=== PATIENT | female | born 1990 | race Hispanic/Latino ===

== ENCOUNTER 2018-08-14 02:52 | Emergency (ER) | payer OTHER ==
[2018-08-14] MEDS ORDERED: SODIUM CHLORIDE 0.9% 1000ML 1,000 ML IV ONE (03:11)
[2018-08-14] MEDS ORDERED: ONDANSETRON HCL MDV 20ML 2 MG/ML VIAL ONE (03:11)
[2018-08-14] MEDS ORDERED: MORPHINE SULFATE 4 MG/1ML SYG ONE (03:12)
[2018-08-14 03:24] LABS: BASOPHILS % (AUTO) 0.3 % (0.0-5.0); EOSINOPHILS % (AUTO) 2.4 % (0.0-8.0); HEMATOCRIT 33.9 % (36-48); LYMPHOCYTES % (AUTO) 32.6 % (21.0-51.0); MEAN CORPUSCULAR HEMOGLOBIN 27.7 pg (27.0-33.0); MEAN CORPUSCULAR HGB CONC 32.2 g/dL (32.0-36.0); MONOCYTES % (AUTO) 7.9 % (3.0-13.0); NEUTROPHILS % (AUTO) 56.8 % (40.0-77.0); NUCLEATED RED BLOOD CELLS 0.1 % (0.0-0.19); PLATELET COUNT (AUTO) 203 K/uL (130-400); RED BLOOD CELL COUNT(AUTO) 3.94 MIL/uL (4.00-5.50); RED CELL DISTRIBUTION WIDTH 14.3 % (11.0-15.5); WHITE BLOOD COUNT (AUTO) 9.6 K/uL (4.8-10.8)
[2018-08-14 03:31] LABS: CREATININE 0.7 mg/dL (0.5-1.5); POTASSIUM 3.6 mmol/L (3.5-5.1)
[2018-08-14 03:36] LABS: ALBUMIN 3.6 g/dL (3.5-5.0); BILIRUBIN,TOTAL 0.2 mg/dL (0.2-1.0); TOTAL PROTEIN, SERUM 7.4 g/dL (6.0-8.3)
[2018-08-14 03:51] LABS: APPEARANCE,URINE Cloudy (CLEAR); BILIRUBIN,URINE Negative (NEGATIVE); COLOR,URINE Orange (YELLOW); GLUCOSE, URINE (UA) Negative (NEGATIVE); KETONES,URINE Negative (NEGATIVE); LEUKOCYTE ESTERASE ,URINE Moderate (NEGATIVE); NITRATE,URINE Negative (NEGATIVE); OCCULT BLOOD,URINE Large (NEGATIVE); PROTEIN,URINE POS 1+ (NEGATIVE)
[2018-08-14 03:52] LABS: HCG,QUAL RESULT NEGATIVE (NEGATIVE)
[2018-08-14 03:58] LABS: AMPHET/METH SCREEN,URINE NEGATIVE (NEGATIVE); BARBITURATE SCREEN, URINE NEGATIVE (NEGATIVE); BENZODIAZEPINES SCREEN,URINE NEGATIVE (NEGATIVE); CANNABINOID SCREEN,URINE POSITIVE (NEGATIVE); COCAINE SCREEN,URINE NEGATIVE (NEGATIVE); OPIATE SCREEN,URINE POSITIVE (NEGATIVE); PHENCYCLIDINE SCREEN,URINE NEGATIVE (NEGATIVE)
[2018-08-14 04:04] LABS: BACTERIA,URINE Moderate /HPF (None Seen); RBC,URINE TNTC /HPF (0-1)
== END 2018-08-14 04:57 | disposition home or self-care (01) ==
LOC: EDH 02:52
DX: N39.0 Urinary tract infection, site not specified (principal); N20.0 Calculus of kidney
CPT/HCPCS: 36415; 74176; 80053; 80305; 81001; 81025; 83690; 85025; 96374; 96375; 99284; J2270; J7030

== ENCOUNTER 2018-08-21 15:08 | Emergency (ER) | payer SELFPAY ==
[2018-08-21 15:46] LABS: APPEARANCE,URINE Clear (CLEAR); BILIRUBIN,URINE Negative (NEGATIVE); COLOR,URINE Yellow (YELLOW); GLUCOSE, URINE (UA) Negative (NEGATIVE); KETONES,URINE >=80 mg/dL (NEGATIVE); LEUKOCYTE ESTERASE ,URINE Small (NEGATIVE); NITRATE,URINE Negative (NEGATIVE); OCCULT BLOOD,URINE Large (NEGATIVE); PH,URINE 5.5 (5.0-8.0); PROTEIN,URINE POS 1+ (NEGATIVE)
[2018-08-21 15:49] LABS: HCG,QUAL RESULT NEGATIVE (NEGATIVE)
[2018-08-21] MEDS ORDERED: KETOROLAC TROMETHAMINE 30MG/ML ONE (15:53)
[2018-08-21 15:57] LABS: BACTERIA,URINE Moderate /HPF (None Seen); RBC,URINE 26-50 /HPF (0-1)
== END 2018-08-21 18:07 | disposition home or self-care (01) ==
LOC: EDH 15:08
DX: N20.1 Calculus of ureter (principal)
CPT/HCPCS: 74176; 81001; 81025; 96372; 99284; J1885

== ENCOUNTER 2021-07-09 13:26 | Inpatient (IN) | payer SELFPAY ==
[~2021-07-09] VITALS: Ht 152.4 cm; Wt 53.3 kg
[2021-07-09] MEDS ORDERED: 0.9%NACL 1000ML 1,000 ML IV ONE (14:00)
[2021-07-09] MEDS ORDERED: ONDANSETRON 4MG INJ IVP ONE (14:00)
[2021-07-09] MEDS ORDERED: MORPHINE 2 MG SYG IVP ONE ×2 (14:00→18:00)
[2021-07-09 14:12] LABS: BASOPHILS % (AUTO) 0.1 % (0.0-5.0); HEMATOCRIT 34.8 % (36-48); LYMPHOCYTES % (AUTO) 6.2 % (21.0-51.0); MEAN CORPUSCULAR HEMOGLOBIN 31.6 pg (27.0-33.0); MEAN CORPUSCULAR HGB CONC 32.8 g/dL (32.0-36.0); MEAN CORPUSCULAR VOLUME 96.4 fL (79-99); MONOCYTES % (AUTO) 6.2 % (3.0-13.0); NEUTROPHILS % (AUTO) 87.1 % (40.0-77.0); PLATELET COUNT (AUTO) 228 K/uL (130-400); RED BLOOD CELL COUNT(AUTO) 3.61 MIL/uL (4.00-5.50); RED CELL DISTRIBUTION WIDTH 11.9 % (11.0-15.5); WHITE BLOOD COUNT (AUTO) 16.1 K/uL (4.8-10.8)
[2021-07-09 14:19] LABS: APPEARANCE,URINE Cloudy (CLEAR); BILIRUBIN,URINE Negative (NEGATIVE); COLOR,URINE Yellow (YELLOW); GLUCOSE, URINE (UA) Negative (NEGATIVE); KETONES,URINE >=80 mg/dL (NEGATIVE); LEUKOCYTE ESTERASE ,URINE Large (NEGATIVE); NITRATE,URINE Negative (NEGATIVE); OCCULT BLOOD,URINE Large (NEGATIVE); PH,URINE 5.5 (5.0-8.0); PROTEIN,URINE Negative (NEGATIVE)
[2021-07-09 14:20] LABS: CREATININE 0.8 mg/dL (0.5-1.5); POTASSIUM 3.7 mmol/L (3.5-5.1)
[2021-07-09 14:29] LABS: HCG,QUAL RESULT NEGATIVE (NEGATIVE)
[2021-07-09 14:34] LABS: ALBUMIN 3.7 g/dL (3.5-5.0); BILIRUBIN,TOTAL 0.6 mg/dL (0.2-1.0); TOTAL PROTEIN, SERUM 7.3 g/dL (6.0-8.3)
[2021-07-09 14:37] LABS: BACTERIA,URINE Few /HPF (None Seen); SQUAMOUS EPITHELIAL CELL,UR Moderate /HPF (0-2)
[2021-07-09 14:38] LABS: MUCUS,URINE Few LPF (None Seen)
[2021-07-09] MEDS ORDERED: CEFTRIAXONE 1G VIAL IVP ONE (15:00)
[2021-07-09] MEDS ORDERED: KETOROLAC 30MG VIAL (30MG/ML) IV ONE (16:00)
[2021-07-09] MEDS ORDERED: TAMSULOSIN HCL 0.4 MG CAP.ER.24H PO SCH (16:00)
[2021-07-09] MEDS: 0.9%NACL 1000ML 1,000 ML IV SCH ×3 (16:43→22:40)
[2021-07-09] MEDS ORDERED: MORPHINE 2 MG SYG ONE (17:38)
[2021-07-09] MEDS ORDERED: 0.9%NACL 100ML 100 ML ONE ×2 (17:39→22:34)
[2021-07-09] MEDS ORDERED: PROMETHAZINE HCL 25 MG/ML 1ML AMPULE IM ONE (18:00)
[2021-07-09] MEDS ORDERED: ONDANSETRON 4MG INJ IV PRN (18:30)
[2021-07-09] MEDS: TAMSULOSIN HCL 0.4 MG CAP.ER.24H PO SCH (22:30)
[2021-07-09] MEDS: FAMOTIDINE 20MG VIAL IV SCH (22:30)
[2021-07-09] MEDS: ZOSYN 3.375GM+NS 50ML 50 ML IV SCH (22:30)
[2021-07-10] MEDS: 0.9%NACL 1000ML 1,000 ML IV SCH ×7 (01:10→21:23)
[2021-07-10 04:28] LABS: BASOPHILS % (AUTO) 0.2 % (0.0-5.0); EOSINOPHILS % (AUTO) 0.1 % (0.0-8.0); HEMATOCRIT 30.3 % (36-48); LYMPHOCYTES % (AUTO) 3.4 % (21.0-51.0); MEAN CORPUSCULAR HEMOGLOBIN 32.4 pg (27.0-33.0); MEAN CORPUSCULAR HGB CONC 33.3 g/dL (32.0-36.0); MEAN CORPUSCULAR VOLUME 97.1 fL (79-99); MONOCYTES % (AUTO) 3.3 % (3.0-13.0); NEUTROPHILS % (AUTO) 92.2 % (40.0-77.0); PLATELET COUNT (AUTO) 170 K/uL (130-400); RED BLOOD CELL COUNT(AUTO) 3.12 MIL/uL (4.00-5.50); RED CELL DISTRIBUTION WIDTH 12.2 % (11.0-15.5); WHITE BLOOD COUNT (AUTO) 22.3 K/uL (4.8-10.8)
[2021-07-10 04:55] LABS: CREATININE 1.2 mg/dL (0.5-1.5); POTASSIUM 3.9 mmol/L (3.5-5.1)
[2021-07-10 05:38] VITALS: BP 82/49
[2021-07-10] MEDS: ZOSYN 3.375GM+NS 50ML 50 ML IV SCH ×3 (05:59→21:23)
[2021-07-10] MEDS: ACETAMINOPHEN 325 MG TAB PO PRN (05:59)
[2021-07-10] MEDS ORDERED: FLU VACC QS2021-22(6MOS UP)/PF 60 MCG/0.5 ML ML IM ONE (07:00)
[2021-07-10 08:00] VITALS: BP 85/52
[2021-07-10] MEDS: FAMOTIDINE 20MG VIAL IV SCH ×2 (10:06→21:22)
[2021-07-10 12:00] VITALS: BP 94/51
[2021-07-10 16:00] VITALS: BP 99/54
[2021-07-10 19:53] LABS: BASOPHILS % (AUTO) 0.2 % (0.0-5.0); EOSINOPHILS % (AUTO) 1.1 % (0.0-8.0); HEMATOCRIT 31.2 % (36-48); MEAN CORPUSCULAR HEMOGLOBIN 31.4 pg (27.0-33.0); MEAN CORPUSCULAR HGB CONC 32.1 g/dL (32.0-36.0); MEAN CORPUSCULAR VOLUME 98.1 fL (79-99); MONOCYTES % (AUTO) 5.9 % (3.0-13.0); NEUTROPHILS % (AUTO) 87.7 % (40.0-77.0); PLATELET COUNT (AUTO) 157 K/uL (130-400); RED BLOOD CELL COUNT(AUTO) 3.18 MIL/uL (4.00-5.50); RED CELL DISTRIBUTION WIDTH 12.3 % (11.0-15.5); WHITE BLOOD COUNT (AUTO) 17.1 K/uL (4.8-10.8)
[2021-07-10 20:12] VITALS: BP 87/54
[2021-07-10] MEDS: TAMSULOSIN HCL 0.4 MG CAP.ER.24H PO SCH (21:22)
[2021-07-10] MEDS: MORPHINE 2 MG SYG IV PRN (23:18)
[2021-07-11] VITALS (8 sets, daily range): BP systolic 91–100; BP diastolic 52–67
[2021-07-11] MEDS: 0.9%NACL 1000ML 1,000 ML IV SCH ×7 (00:36→21:20)
[2021-07-11] MEDS: ZOSYN 3.375GM+NS 50ML 50 ML IV SCH ×3 (04:50→21:54)
[2021-07-11] MEDS: MORPHINE 2 MG SYG IV PRN (06:04)
[2021-07-11] MEDS: FAMOTIDINE 20MG VIAL IV SCH ×2 (09:10→21:54)
[2021-07-11] MEDS: FLU VACC QS2021-22(6MOS UP)/PF 60 MCG/0.5 ML ML IM SCH ×2 (09:10→09:12)
[2021-07-11 09:27] LABS: HEMATOCRIT 29.9 % (36-48); MEAN CORPUSCULAR HEMOGLOBIN 31.7 pg (27.0-33.0); MEAN CORPUSCULAR HGB CONC 32.1 g/dL (32.0-36.0); MEAN CORPUSCULAR VOLUME 98.7 fL (79-99); PLATELET COUNT (AUTO) 128 K/uL (130-400); RED BLOOD CELL COUNT(AUTO) 3.03 MIL/uL (4.00-5.50); RED CELL DISTRIBUTION WIDTH 12.4 % (11.0-15.5); WHITE BLOOD COUNT (AUTO) 16.7 K/uL (4.8-10.8)
[2021-07-11 09:40] LABS: CREATININE 1.1 mg/dL (0.5-1.5); POTASSIUM 3.6 mmol/L (3.5-5.1)
[2021-07-11 09:57] LABS: EOSINOPHILS % (MANUAL) 1 % (1-6); LYMPHOCYTES % (MANUAL) 10 % (22-44); MAN.DIFF COMMENT-IMPRESSION MANUAL DIFFERENTIAL; MONOCYTES % (MANUAL) 2 % (2-9); SEGMENTED NEUTROPHILS % 87 % (40-70)
[2021-07-11 10:01] LABS: PLATELET MORPHOLOGY COMMENT SLIGHTLY DECREASED
[2021-07-11] MEDS ORDERED: IOHEXOL 350 MG/ML 100ML INFUS..BTL IV ONE (10:11)
[2021-07-11] MEDS: MORPHINE 4 MG SYG IV PRN (12:48)
[2021-07-11] MEDS: TAMSULOSIN HCL 0.4 MG CAP.ER.24H PO SCH (21:53)
[2021-07-11] MEDS: ACETAMINOPHEN 325 MG TAB PO PRN (21:54)
[2021-07-12] VITALS (13 sets, daily range): BP systolic 89–99; BP diastolic 47–63
[2021-07-12] MEDS: 0.9%NACL 1000ML 1,000 ML IV SCH ×7 (01:31→20:47)
[2021-07-12] MEDS: ZOSYN 3.375GM+NS 50ML 50 ML IV SCH ×3 (06:10→20:35)
[2021-07-12] MEDS: FLU VACC QS2021-22(6MOS UP)/PF 60 MCG/0.5 ML ML IM SCH (07:00)
[2021-07-12 07:58] LABS: INR 0.99 (0.85-1.15); PROTHROMBIN TIME 10.8 SEC (9.6-11.6)
[2021-07-12 07:59] LABS: PARTIAL THROMBOPLASTIN TIME 32.2 SEC (26.3-35.5)
[2021-07-12] MEDS ORDERED: IODIXANOL 320 MG/ML 100 ML VIAL ONE (08:15)
[2021-07-12] MEDS ORDERED: LIDOCAINE HCL 1% MDV 50ML VIAL ONE (08:15)
[2021-07-12] MEDS: FAMOTIDINE 20MG VIAL IV SCH ×2 (08:50→20:35)
[2021-07-12] MEDS ORDERED: MIDAZOLAM HCL 1 MG/ML 2ML VIAL ONE (09:02)
[2021-07-12] MEDS ORDERED: FENTANYL CITRATE PF 50 MCG/1 ML 2ML VIAL ONE (09:02)
[2021-07-12] MEDS ORDERED: PHARMACY COMMUNICATION MISC SCH (09:30)
[2021-07-12] MEDS ORDERED: ACET1TAB25 PO (09:54)
[2021-07-12] MEDS ORDERED: TAMS-1 PO (09:54)
[2021-07-12] MEDS: MORPHINE 4 MG SYG IV PRN (09:59)
[2021-07-12] MEDS: MORPHINE 2 MG SYG IV PRN ×2 (11:51→20:36)
[2021-07-12] MEDS: ACETAMINOPHEN 325 MG TAB PO PRN (14:06)
[2021-07-12] MEDS ORDERED: LEVO500T90 PO (16:16)
[2021-07-12 17:01] LABS: HEMATOCRIT 31.2 % (36-48); MEAN CORPUSCULAR HEMOGLOBIN 31.6 pg (27.0-33.0); MEAN CORPUSCULAR HGB CONC 32.7 g/dL (32.0-36.0); MEAN CORPUSCULAR VOLUME 96.6 fL (79-99); PLATELET COUNT (AUTO) 179 K/uL (130-400); RED BLOOD CELL COUNT(AUTO) 3.23 MIL/uL (4.00-5.50); RED CELL DISTRIBUTION WIDTH 12.2 % (11.0-15.5); WHITE BLOOD COUNT (AUTO) 12.8 K/uL (4.8-10.8)
[2021-07-12 17:13] LABS: CREATININE 0.6 mg/dL (0.5-1.5); POTASSIUM 3.3 mmol/L (3.5-5.1)
[2021-07-12 17:23] LABS: BAND NEUTROPHILS % (MANUAL) 4 % (0-2); EOSINOPHILS % (MANUAL) 2 % (1-6); LYMPHOCYTES % (MANUAL) 11 % (22-44); MAN.DIFF COMMENT-IMPRESSION MANUAL DIFFERENTIAL; MONOCYTES % (MANUAL) 7 % (2-9); REACTIVE LYMPHOCYTES 2 % (0-0); SEGMENTED NEUTROPHILS % 74 % (40-70)
[2021-07-12 17:24] LABS: PLATELET MORPHOLOGY COMMENT LARGE PLTS PRESENT
[2021-07-12] MEDS ORDERED: ACETAMINOPHEN WITH CODEINE 1 TAB TAB PO PRN (17:30)
[2021-07-12] MEDS: TAMSULOSIN HCL 0.4 MG CAP.ER.24H PO SCH (20:35)
[2021-07-13] VITALS: BP 107/68
[2021-07-13] MEDS: 0.9%NACL 1000ML 1,000 ML IV SCH ×8 (02:30→22:58)
[2021-07-13] MEDS: MORPHINE 2 MG SYG IV PRN (03:44)
[2021-07-13 04:00] VITALS: BP 108/69
[2021-07-13 04:25] LABS: BASOPHILS % (AUTO) 0.2 % (0.0-5.0); EOSINOPHILS % (AUTO) 0.7 % (0.0-8.0); HEMATOCRIT 30.6 % (36-48); LYMPHOCYTES % (AUTO) 15.6 % (21.0-51.0); MEAN CORPUSCULAR HEMOGLOBIN 31.6 pg (27.0-33.0); MEAN CORPUSCULAR VOLUME 95.6 fL (79-99); NEUTROPHILS % (AUTO) 71.4 % (40.0-77.0); PLATELET COUNT (AUTO) 169 K/uL (130-400); WHITE BLOOD COUNT (AUTO) 11.5 K/uL (4.8-10.8)
[2021-07-13 04:32] LABS: CREATININE 0.6 mg/dL (0.5-1.5); POTASSIUM 3.1 mmol/L (3.5-5.1)
[2021-07-13] MEDS: ZOSYN 3.375GM+NS 50ML 50 ML IV SCH ×3 (05:38→20:30)
[2021-07-13] MEDS: FLU VACC QS2021-22(6MOS UP)/PF 60 MCG/0.5 ML ML IM SCH (07:00)
[2021-07-13 08:00] VITALS: BP 98/60
[2021-07-13] MEDS: FAMOTIDINE 20MG VIAL IV SCH ×2 (10:00→20:30)
[2021-07-13] MEDS: ACETAMINOPHEN 325 MG TAB PO PRN (10:00)
[2021-07-13 11:48] VITALS: BP 99/59
[2021-07-13] MEDS ORDERED: LACTULOSE 20 GM/30 ML UDCUP PO SCH (13:00)
[2021-07-13 16:00] VITALS: BP 107/69
[2021-07-13 20:00] VITALS: BP 108/67
[2021-07-13] MEDS: TAMSULOSIN HCL 0.4 MG CAP.ER.24H PO SCH (20:30)
[2021-07-14] VITALS: BP 102/61
[2021-07-14] MEDS: 0.9%NACL 1000ML 1,000 ML IV SCH ×2 (01:49→05:10)
[2021-07-14 04:00] VITALS: BP 114/69
[2021-07-14] MEDS: ZOSYN 3.375GM+NS 50ML 50 ML IV SCH ×2 (05:31→13:33)
[2021-07-14 08:00] VITALS: BP 110/69
[2021-07-14] MEDS ORDERED: KCL 20 MEQ ERTAB PO SCH ×2 (09:30→15:00)
[2021-07-14] MEDS: FAMOTIDINE 20MG VIAL IV SCH (09:44)
[2021-07-14 11:44] VITALS: BP 100/70
[2021-07-14 11:50] LABS: HEMATOCRIT 31.4 % (36-48); MEAN CORPUSCULAR HEMOGLOBIN 31.9 pg (27.0-33.0); MEAN CORPUSCULAR HGB CONC 34.1 g/dL (32.0-36.0); MEAN CORPUSCULAR VOLUME 93.7 fL (79-99); RED BLOOD CELL COUNT(AUTO) 3.35 MIL/uL (4.00-5.50)
[2021-07-14 12:02] LABS: CREATININE 0.5 mg/dL (0.5-1.5); POTASSIUM 3.3 mmol/L (3.5-5.1)
[2021-07-14 16:00] VITALS: BP 110/72
[2021-07-14] MEDS ORDERED: TAMS-1 PO (17:51)
[2021-07-14] MEDS ORDERED: LEVO500T90 PO (17:53)
== END 2021-07-14 18:55 | disposition home or self-care (01) | DRG 690 ==
LOC: EDH 13:26 → EDHIP 13:27 → 3BH 07-10 05:09
PROVIDERS: ADMIT Internal Medicine; ATTEND Internal Medicine
PROC: 0T9030Z Drainage of Right Kidney with Drainage Device, Percutaneous Approach (ICD-10-PCS; principal; 2021-07-12)
DX: N13.6 Pyonephrosis (principal); B96.20 Unspecified Escherichia coli [E. coli] as the cause of diseases classified elsewhere; E87.6 Hypokalemia; Z87.442 Personal history of urinary calculi
CPT/HCPCS: 36415; 50432; 74176; 74400; 76942; 80048; 80053; 81001; 81025; 82360; 83605; 83690; 84132; 84145; 85025; 85027; 85610; 85730; 86140; 87040; 87071; 87077; 87088; 87186; 87205; 99156; 99157; C1729; C1769; C1894; G0378; J0696; J1644; J1885; J2250; J2270; J2405; J2543; J3010; J3490; J7030; Q9967

== ENCOUNTER 2022-08-30 21:20 | Emergency (ER) | payer OTHER ==
[~2022-08-30] VITALS: Ht 152.4 cm; Wt 49.9 kg
[~2022-08-30 21:20] MED LIST: ACET-2079 PO; LEVO-70 PO; TAMS-1 PO
[2022-08-30] MEDS ORDERED: ONDANSETRON ODT 4MG TAB ONE (23:22)
[2022-08-30] MEDS ORDERED: ACETAMINOPHEN 500 MG TABLET PO ONE (23:30)
[2022-08-30 23:58] VITALS: BP 100/62
== END 2022-08-31 00:22 | disposition home or self-care (01) ==
LOC: EDH 21:20
DX: B34.9 Viral infection, unspecified (principal); Z20.822 Contact with and (suspected) exposure to COVID-19
CPT/HCPCS: 99283; 87635; 87880; 87804 ×2; C9803